=== PATIENT | female | born 1995 ===

== ENCOUNTER → 2020-04-22 14:17 | Outpatient (BNVA) | payer SELFPAY | PROVIDERS: Family Provider Family Medicine; PCP Family Medicine; Visit Provider Family Medicine | DX: E28.2 Polycystic ovarian syndrome (principal); F41.1 Generalized anxiety disorder; Z68.37 Body mass index [BMI] 37.0-37.9, adult; Z71.89 Other specified counseling | CPT/HCPCS: 80053 ==

== ENCOUNTER → 2020-06-29 09:37 | Outpatient (BNVA) | payer SELFPAY | PROVIDERS: Family Provider Family Medicine; PCP Family Medicine; Visit Provider Obstetrics & Gynecology | DX: Z34.01 Encounter for supervision of normal first pregnancy, first trimester (principal) | CPT/HCPCS: 81025 ==

== ENCOUNTER → 2020-08-11 10:00 | Outpatient (BNVA) | payer MEDICAID, SELFPAY | PROVIDERS: Family Provider Family Medicine; PCP Family Medicine; Visit Provider Obstetrics & Gynecology | DX: O09.291 Supervision of pregnancy with other poor reproductive or obstetric history, first trimester (principal); O99.281 Endocrine, nutritional and metabolic diseases complicating pregnancy, first trimester; E04.1 Nontoxic single thyroid nodule; E06.3 Autoimmune thyroiditis; E28.2 Polycystic ovarian syndrome; Z3A.10 10 weeks gestation of pregnancy | CPT/HCPCS: 80307; 81000; 82950; 84439; 84443; 84481; 85027; 86592; 86762; 86803; 86850; 86900; 87086; 87340; 87522 ==

== ENCOUNTER → 2020-08-24 09:42 | Outpatient (BNVA) | payer MEDICAID, SELFPAY | PROVIDERS: Family Provider Family Medicine; PCP Family Medicine; Visit Provider Obstetrics & Gynecology | DX: O09.299 Supervision of pregnancy with other poor reproductive or obstetric history, unspecified trimester (principal); E28.2 Polycystic ovarian syndrome; E03.9 Hypothyroidism, unspecified; F41.9 Anxiety disorder, unspecified; F32.9 Major depressive disorder, single episode, unspecified; Z3A.00 Weeks of gestation of pregnancy not specified | CPT/HCPCS: 84315; 87491; 87591 ==

== ENCOUNTER → 2020-09-21 09:58 | Outpatient (BNVA) | payer MEDICAID, SELFPAY | PROVIDERS: Family Provider Family Medicine; PCP Family Medicine; Visit Provider Nurse Practitioner Women's Health | DX: Z34.80 Encounter for supervision of other normal pregnancy, unspecified trimester; E03.9 Hypothyroidism, unspecified | CPT/HCPCS: 82105; 84315; 84443 ==

== ENCOUNTER → 2020-10-26 10:14 | Outpatient (BNVA) | payer MEDICAID, SELFPAY | PROVIDERS: Family Provider Family Medicine; PCP Family Medicine; Visit Provider Obstetrics & Gynecology | DX: O99.280 Endocrine, nutritional and metabolic diseases complicating pregnancy, unspecified trimester (principal); Z3A.00 Weeks of gestation of pregnancy not specified; E03.9 Hypothyroidism, unspecified | CPT/HCPCS: 81000; 84443 ==

== ENCOUNTER → 2020-12-14 12:15 | Outpatient (BNVA) | payer MEDICAID, SELFPAY | PROVIDERS: Family Provider Family Medicine; PCP Family Medicine; Visit Provider Nurse Practitioner Women's Health | DX: Z34.80 Encounter for supervision of other normal pregnancy, unspecified trimester (principal) | CPT/HCPCS: 82950; 84315; 84443; 85025 ==

== ENCOUNTER → 2020-12-17 08:20 | Outpatient (BNVA) | payer MEDICAID, SELFPAY | PROVIDERS: Family Provider Family Medicine; PCP Family Medicine; Visit Provider Nurse Practitioner Women's Health | DX: Z34.80 Encounter for supervision of other normal pregnancy, unspecified trimester (principal) | CPT/HCPCS: 82951; 82952 ==

== ENCOUNTER → 2020-12-28 10:52 | Outpatient (BNVA) | payer MEDICAID, SELFPAY | PROVIDERS: Family Provider Family Medicine; PCP Family Medicine; Visit Provider Obstetrics & Gynecology | DX: Z34.80 Encounter for supervision of other normal pregnancy, unspecified trimester (principal) | CPT/HCPCS: 84315; 84443 ==

== ENCOUNTER → 2021-01-25 16:09 | Outpatient (BNVA) | payer MEDICAID, SELFPAY | PROVIDERS: Family Provider Family Medicine; PCP Family Medicine; Visit Provider Nurse Practitioner Women's Health | DX: O99.280 Endocrine, nutritional and metabolic diseases complicating pregnancy, unspecified trimester; E03.9 Hypothyroidism, unspecified; O26.899 Other specified pregnancy related conditions, unspecified trimester; L29.9 Pruritus, unspecified; Z3A.00 Weeks of gestation of pregnancy not specified | CPT/HCPCS: 80076; 82010; 84315; 84443 ==

== ENCOUNTER → 2021-01-29 11:53 | Outpatient (BNVA) | payer MEDICAID, SELFPAY | PROVIDERS: Family Provider Family Medicine; PCP Family Medicine; Visit Provider Registered Nurse Neonatal Intensive Care | DX: Z20.822 Contact with and (suspected) exposure to COVID-19 (principal) | CPT/HCPCS: 87635 ==

== ENCOUNTER → 2021-02-09 10:57 | Outpatient (BNVA) | payer MEDICAID, SELFPAY | PROVIDERS: Family Provider Family Medicine; PCP Family Medicine; Visit Provider Obstetrics & Gynecology | DX: Z34.90 Encounter for supervision of normal pregnancy, unspecified, unspecified trimester (principal) | CPT/HCPCS: 84315; 87081 ==

== ENCOUNTER 2021-02-18 16:05 | Outpatient (CLI) | payer MEDICAID, SELFPAY ==
[2021-02-18] VITALS (7 sets, daily range): BP systolic 113–137; BP diastolic 64–85; PULSE 97–121; BMI 44.6
[2021-02-18 16:39] LABS: Basophils % 0.2 %; Eosinophils % 0.3 %; Hemoglobin 11.9 g/dL (11.5-15.3); Lymphocytes # 1.9 10^3/uL (0.8-4.8); Lymphocytes % 17.9 %; Mean Corpuscular HGB Conc 32.2 g/dL (30.0-36.0); Mean Corpuscular Hemoglobin 27.5 pg (28.0-34.0); Mean Corpuscular Volume 85.6 fl (81-99); Mean Platelet Volume 11.7 fL (7.4-10.4); Monocytes # 0.5 10^3/uL (0.2-0.9); Monocytes % 4.9 %; Neutrophils # 7.98 10^3/uL (1.8-7.7); Neutrophils % 76.3 %; Nucleated Red Blood Cells % 0 %; Platelet Count 185 10^3/cmm (130-400); Red Blood Count 4.32 10^6/uL (4.1-5.3); Red Cell Distribution Width 15.7 % (12.1-15.1); White Blood Count 10.5 10^3/uL (4.0-10.0)
[2021-02-18 16:56] LABS: Alanine Aminotransferase < 5 U/L (0-33); Albumin Level 3.3 g/dL (3.5-5.2); Alkaline Phosphatase 107 IU/L (35-105); Anion Gap 22.5 (5-19); Aspartate Amino Transferase 12 U/L (0-32); Blood Urea Nitrogen 6 mg/dL (6-20); Calcium 8.7 mg/dL (8.5-10.5); Carbon Dioxide 14 mmol/L (22-29); Chloride 104 mmol/L (98-107); Globulin 3.2 g/dL (1.3-4.6); Glomerular Filtration Rate 150.3 mL/min (90-130); Glucose 156 mg/dL (65-115); Osmolality Calculated 285 mOsm/kg (285-295); Potassium 3.5 mmol/L (3.5-5.1); Sodium 137 mmol/L (136-145); Total Bilirubin 0.2 mg/dL (0.15-1.2); Total Protein 6.5 g/dL (6.6-8.7)
[2021-02-18 17:23] LABS: Glucose Urine UA 2+ (Normal); Protein Urine 1+ (Negative); Specific Gravity, Urine 1.025 (1.005-1.030); Urine Appearance Cloudy (CLEAR); Urine Color Yellow (Yellow); pH Urine 5 (5-7)
[2021-02-18 17:24] LABS: Add Urine Culture? No; Bacteria Urine 3+ /hpf; Bilirubin Urine Neg (Negative); Blood Urine Neg (Negative); Ketones Urine 2+ (Negative); Leukocyte Esterase Urine Negative (Negative); Nitrate Urine Negative (Negative); Urobilinogen Urine Norm (Negative)
[2021-02-18 17:36] LABS: Urine Creatinine 173 mg/dL (28-217)
[2021-02-18 17:42] LABS: UPRO/UCREAT Ratio 0.54 mg/mg CR; Urine Protein Random 94 mg/dL
[2021-02-18 20:22] LABS: Thyroid Stimulating Hormone 2.11 uIU/mL (0.27-4.20)
== END 2021-02-18 18:20 | disposition home or self-care (01) ==
LOC: OPOB 16:11 → OBGYN 16:12
PROVIDERS: Family Provider Family Medicine; PCP Family Medicine; Visit Provider Obstetrics & Gynecology
DX: O16.9 Unspecified maternal hypertension, unspecified trimester (principal)
CPT/HCPCS: 36415; 80053; 81001; 82570; 84156; 84315; 84443; 84550; 85025; 87086; 99211

== ENCOUNTER → 2021-02-21 08:59 | Outpatient (BNVA) | payer MEDICAID, SELFPAY | PROVIDERS: Family Provider Family Medicine; PCP Family Medicine; Visit Provider Obstetrics & Gynecology | DX: Z34.80 Encounter for supervision of other normal pregnancy, unspecified trimester (principal); Z20.822 Contact with and (suspected) exposure to COVID-19 | CPT/HCPCS: 84315; 87635 ==

== ENCOUNTER → 2021-02-22 16:14 | Outpatient (BNVA) | payer MEDICAID, SELFPAY | PROVIDERS: Family Provider Family Medicine; PCP Family Medicine; Visit Provider Nurse Practitioner Women's Health | DX: Z34.80 Encounter for supervision of other normal pregnancy, unspecified trimester (principal) | CPT/HCPCS: 82570; 84156 ==

== ENCOUNTER 2021-02-23 05:07 | Inpatient (IN) | payer MEDICAID, SELFPAY ==
[2021-02-23] VITALS (38 sets, daily range): BP systolic 108–136; BP diastolic 56–90; PULSE 75–116; RESP 16–17; TEMP 36.5–36.8; BMI 44.8
[2021-02-23 06:28] LABS: Basophils % 0.2 %; Eosinophils # 0.1 10^3/uL (0.0-0.8); Eosinophils % 0.6 %; Hemoglobin 11.8 g/dL (11.5-15.3); Lymphocytes # 2.3 10^3/uL (0.8-4.8); Lymphocytes % 25.6 %; Mean Corpuscular HGB Conc 31.9 g/dL (30.0-36.0); Mean Corpuscular Hemoglobin 27.4 pg (28.0-34.0); Mean Platelet Volume 12.4 fL (7.4-10.4); Monocytes # 0.8 10^3/uL (0.2-0.9); Monocytes % 9.2 %; Neutrophils # 5.72 10^3/uL (1.8-7.7); Neutrophils % 64.1 %; Nucleated Red Blood Cells % 0 %; Platelet Count 176 10^3/cmm (130-400); Red Cell Distribution Width 15.8 % (12.1-15.1); White Blood Count 8.9 10^3/uL (4.0-10.0)
--- NOTE | 2021-02-23 07:00 | P.PN_ITS ---
Subjective Subjective: Interval history: Subjective- Ms. Lamar is a 25-year-old 3 para 2-0-0-2 at 38 weeks and 4 days who presented to labor and delivery on 02/23/2021 for scheduled external cephalic version. When she presented to routine visit on 02/18/2021 she was noted to be breech presentation and when I evaluated her on 02/21/2021 she continued to be breech presentation and after counseling desired version. When she presented to labor and delivery for scheduled version on 02/23/2021 fetus was noted to be cephalic. During her visit on 02/18/2021 she was noted to have elevated blood pressure which was thought to be attributed to anxiety with the pain presentation however she was sent to labor and delivery and lab work done was within normal limits except for protein creatinine ratio which was elevated at 0.5 and uric acid which was elevated at 6. The elevated protein creatinine ratio of urine was thought to be secondary to urinary tract infection and cultu re was sent however this was negative. This raised the concern she may still be preeclamptic although on her visit on 02/21/2021 she was normotensive with negative protein. Straight cath urine analysis and repeat protein creatinine ratio was performed and this protein creatinine ratio was again elevated at 0.38 giving her the diagnosis of preeclampsia without severe features. Because of this decision was made to keep patient and induce her labor. Objective- Abdomen-gravid, nontender, obese Sterile vaginal exam-2 cm, 50%, -4 station, cephalic EFM-135, moderate variability, accelerations present no decelerations Candy Kitchen-c occasional contractions Assessment: 25-year-old 3 para 2-0-0-2 at 38 weeks and 4 days Preeclampsia without severe features-induction of labor Cephalic presentation-no longer breech Polyhydramnios Macrosomia Maternal morbid obesity Maternal hypothyroidism Anxiety and depression-no medication Plan: Discussed with patient results discussed that although she is largely normotensive she meets criteria for preeclampsia. Discussed advantages disadvantages and alternatives of induction now versus waiting for active labor. Discussed risks of untreated undelivered preeclampsia-seizures . She desires to stay to be induced -Patient turned over to Dr. Myers who is on-call today. Dr. Myers updated and has no questions and will take over management. Magnesium sulfate to be determined by managing provider. -Management as per Dr. Myers -Continuous EFM and tocometry Vitals/I&O/Wt Last Vital Signs Temp 97.7 F 02/23/21 05:25 Pulse 93 02/23/21 17:40 Resp 17 02/23/21 08:45 BP 126/63 02/23/21 17:40 02/23/21 02/23/21 02/23/21 06:59 14:59 22:59 Intake Total 0.5 / 0.5 Balance 0.5 / 0.5 Weight last 48 hrs Weight 253 lb Data : 02/23/21 05:35 02/23/21 05:35 Attestations Medical Necessity Statement*: Patient will need to stay for induction and delivery this will likely take more than a couple of midnights Coding Level of Care Code Acute Straight Truck Driver for Anthony Ruiz
[2021-02-23 07:07] LABS: Alanine Aminotransferase 7 U/L (0-33); Albumin Level 3.2 g/dL (3.5-5.2); Alkaline Phosphatase 113 IU/L (35-105); Aspartate Amino Transferase 12 U/L (0-32); Blood Urea Nitrogen 6 mg/dL (6-20); Calcium 8.5 mg/dL (8.5-10.5); Carbon Dioxide 19 mmol/L (22-29); Chloride 105 mmol/L (98-107); Globulin 2.9 g/dL (1.3-4.6); Glomerular Filtration Rate 194.5 mL/min (90-130); Glucose 105 mg/dL (65-115); Osmolality Calculated 282 mOsm/kg (285-295); Sodium 137 mmol/L (136-145); Total Bilirubin 0.2 mg/dL (0.15-1.2); Total Protein 6.1 g/dL (6.6-8.7); Uric Acid 5.7 mg/dL (2.4-5.7)
--- NOTE | 2021-02-23 14:04 | PM.OPHPUD ---
Labor & Delivery H&P Update Date of Procedure: February 23, 2021 Date H&P Performed: 02/21/21 H&P update information: I have reviewed H&P completed within last 30 days, I have examined patient prior to procedure and Changes to prior documentation as noted here Changes to previous documentation: The patient presented for an external cephalic version due to breech presentation. She was found to be cephalic on presentation. She had slightly elevated blood pressures and her urine protein creatinine ratio was 0.38. She denied any symptoms of preeclampsia, however, due to these two things, she meets the criteria for mild preeclampsia. The remainder of her preeclamptic labs were normal. cervix is unchanged. Admission Diagnosis: Preop diagnosis: iup @ 38w4d Planned procedure: Operation Date: 02/23/21 07:00 Proposed Procedures p Cephalic Eversion(Not Applicable) - Cristina Bose MD Related Problem List Diagnoses (1) macrosomia affecting management of mother, antepartum: (2) Anxiety and depression: (3) Hypothyroidism: (4) Supervision of other normal :
[2021-02-23] MEDS: dextrose 5%-lactated ringers 1,000 ML 125 ML IV (14:59)
[2021-02-23] MEDS: oxytocin 30 UNIT/500 ML BAG IV (15:00)
[2021-02-23] MEDS: miSOPROStol 100 mcg tablet 25 MCG VAGINAL (21:17)
[2021-02-24] VITALS (29 sets, daily range): BP systolic 112–150; BP diastolic 55–87; PULSE 75–102; RESP 14–16; TEMP 36.3–36.6
[2021-02-24] MEDS: miSOPROStol 100 mcg tablet 25 MCG VAGINAL (01:33)
[2021-02-24] MEDS: lactated ringers 1,000 ML 125 ML IV (10:47)
[2021-02-24] MEDS: dextrose 5%-lactated ringers 1,000 ML 50 ML IV (13:17)
--- NOTE | 2021-02-24 18:04 | P.PN_ITS ---
Subjective Subjective: Interval history: Subjective- Ms. Lamar is a 25-year-old 3 para 2-0-0-2 at 38 weeks and 4 days who presented to labor and delivery on 02/23/2021 for scheduled external cephalic version. When she presented to routine visit on 02/18/2021 she was noted to be breech presentation and when I evaluated her on 02/21/2021 she continued to be breech presentation and after counseling desired version. When she presented to labor and delivery for scheduled version on 02/23/2021 fetus was noted to be cephalic. During her visit on 02/18/2021 she was noted to have elevated blood pressure which was thought to be attributed to anxiety with the pain presentation however she was sent to labor and delivery and lab work done was within normal limits except for protein creatinine ratio which was elevated at 0.5 and uric acid which was elevated at 6. The elevated protein creatinine ratio of urine was thought to be secondary to urinary tract infection and cultur e was sent however this was negative. This raised the concern she may still be preeclamptic although on her visit on 02/21/2021 she was normotensive with negative protein. Straight cath urine analysis and repeat protein creatinine ratio was performed and this protein creatinine ratio was again elevated at 0.38 giving her the diagnosis of preeclampsia without severe features. Because of this decision was made to keep patient and induce her labor. ------> induction of labor was started with Dr. Myers on 02/23/2021. Patient wanted to try to walk to see if this would help labor and initially declined any medication. She ambulated the umana morning and when she had no further cervical change agreed to starting Pitocin. Pitocin was started at 3 PM on 02/23/2021 and titrated to a maximum of 5 mIU. At 7 PM-4 hours later patient decided she did not want Pitocin anymore and requested this be stopped and she wanted to use Cytotec so she could ambulate. She received a total of 2 doses of Cytotec---1 at 9:15 PM on 02/23/2021 and the second 1 at 1:33 AM on 02/24/2021. With this she started with regular contractions but really did not make much cervical change. She was observed from 5:30 AM to 10:30 AM and wanted to walk but did not make any further cervical change and remained about 3 cm 75% and -3 station and as a result Pitocin was started at 7:30 AM on 02/24/2021--this was titrated to a maximum of 9 mIU. Throughout this time she remained largely normotensive with occasional elevated blood pressures in the low 140s. Labor this far was managed by Dr. Lombardi and Dr. Myers --->When I came motion pictures cartoonist at 5 PM on 02/24/2021 had a long discussion with patient about management of labor. Discussed that protracted labor and long inductions increased risk for hemorrhage. Patient was concerned about Pitocin increasing the risk of depression all her questions were answered and she is willing to try Pitocin. Patient is emotional and crying and frustrated with the lack of progress at this time. Objective- Abdomen-gravid, nontender, obese Sterile vaginal exam-4 cm, 60% -[id number] not well engaged EFM-135, moderate variability, accelerations present no decelerations Stryker-contractions every 2 to 4 minutes Assessment: 25-year-old 3 para 2-0-0-2 at 38 weeks and 5 days Preeclampsia without severe features-induction of labor Cephalic presentation-no longer breech Polyhydramnios Macrosomia Maternal morbid obesity Maternal hypothyroidism Anxiety and depression-no medication Plan: We will start patient back on her thyroid medication-first dose today and every 24 hours -Morbid obesity-start SCDs for DVT prophylaxis given prolonged immobilization from Pitocin and induction -we will take a therapeutic rest from medication at this time and let patient shower eat and ambulate -And will plan on restarting medication between 10 and 11 PM. Discussed sleeper since patient really has not slept very well. -Discussed medication and patient is fine with Pitocin again and is willing to do what of a protocol of Pitocin as needed as she just wants his baby out and wants to avoid a -Active type and screen given high risk for hemorrhage given long induction, macrosomia and polyhydramnios - continuous EFM and tocometry -Preeclampsia-discussed that since she is mild without any severe features and just occasional elevated blood pressure we can defer on magnesium sulfate and could either active labor or just . Discussed I would definitely recommend magnesium sulfate decrease her risk of seizures. She understands this and agrees with this. Discussed possible need for Bray cath and she is not sure if she wants a Bray catheter and will revisit this issue . She would prefer to have magnesium sulfate only and not in labor. -All patient's and her partner's questions were answered to their satisfaction and they agree with the current plan of care Vitals/I&O/Wt Last Vital Signs Temp 97.9 F 02/24/21 16:06 Pulse 86 02/24/21 16:06 Resp 16 02/24/21 06:00 BP 123/66 02/24/21 16:06 02/24/21 02/24/21 02/24/21 06:59 14:59 22:59 Intake Total 321.967 / 321.967 242.833 / 564.800 Balance 321.967 / 321.967 242.833 / 564.800 Weight last 48 hrs Weight 253 lb Data : 02/23/21 05:35 02/23/21 05:35 Attestations Medical Necessity Statement*: Patient will need to stay 1-2 more midnights for delivery and recovery Coding Level of Care Code Acute Checking Clerk for Rafaelag Sara
[2021-02-24] MEDS: levothyroxine 175 mcg Tablet PO (18:45)
[2021-02-24] MEDS: morphine 4 mg/mL SDV 1 mL 8 MG IM (22:59)
[2021-02-24] MEDS: oxytocin 30 UNIT/500 ML BAG IV (22:59)
[2021-02-24] MEDS: promethazine 25 mg/mL SDV 1 mL IM (23:01)
[2021-02-25] VITALS (41 sets, daily range): BP systolic 104–140; BP diastolic 56–88; PULSE 73–101; RESP 16–18; TEMP 36.3–36.8
[2021-02-25] MEDS: lactated ringers 1,000 ML 999 ML IV (03:10)
[2021-02-25] MEDS: dextrose 5%-lactated ringers 1,000 ML 125 ML IV (07:52)
[2021-02-25] MEDS: miSOPROStol 200 mcg Tablet 800 MCG PR (13:40)
--- NOTE | 2021-02-25 14:42 | PM.DELIVERY ---
Delivery Note: Date of delivery: February 25, 2021 - PRE-DELIVERY DIAGNOSIS: 25-year-old 3 para 2-0-0-2 at 38 weeks and 4 days Preeclampsia without severe features-induction of labor Cephalic presentation-no longer breech Polyhydramnios Macrosomia Maternal morbid obesity Maternal hypothyroidism Anxiety and depression-no medication POST-DELIVERY DIAGNOSIS: Vaginal delivery on 02/25/2021 Preeclampsia without severe features---plan for magnesium sulfate maternal hypothyroidism PROCEDURE: Vaginal delivery on 02/25/2021 ANESTHESIA: None DELIVERING PHYSICIAN: Cristina Caban FACOG PRE-DELIVERY COURSE: Ms. Lamar is a 25-year-old 3 para 2-0-0-2 at 38 weeks and 4 days who presented to labor and delivery on 02/23/2021 for scheduled external cephalic version. When she presented to routine visit on 02/18/2021 she was noted to be breech presentation and when I evaluated her on 02/21/2021 she continued to be breech presentation and after counseling desired version. When she presented to labor and delivery for scheduled version on 02/23/2021 fetus was noted to be cephalic. During her visit on 02/18/2021 she was noted to have elevated blood pressure which was thought to be attributed to anxiety with the pain presentation however she was sent to labor and delivery and lab work done was within normal limits except for protein creatinine ratio which was elevated at 0.5 and uric acid which was elevated at 6. The elevated protein creatinine ratio of urine was thought to be secondary to urinary tract infection and culture was sent however this was negative. This raised the concern she may still be preeclamptic although on her visit on 02/21/2021 she was normotensive with negative protein. Straight cath urine analysis and repeat protein creatinine ratio was performed and this protein creatinine ratio was again elevated at 0.38 giving her the diagnosis of preeclampsia without severe features. Because of this decision was made to keep patient and induce her labor. ------> induction of labor was started with Dr. Myers on 02/23/2021. Patient wanted to try to walk to see if this would help labor and initially declined any medication. She ambulated the umana morning and when she had no further cervical change agreed to starting Pitocin. Pitocin was started at 3 PM on 02/23/2021 and titrated to a maximum of 5 mIU. At 7 PM-4 hours later patient decided she did not want Pitocin anymore and requested this be stopped and she wanted to use Cytotec so she could ambulate. She received a total of 2 doses of Cytotec---1 at 9:15 PM on 02/23/2021 and the second 1 at 1:33 AM on 02/24/2021. With this she started with regular contractions but really did not make much cervical change. She was observed from 5:30 AM to 10:30 AM and wanted to walk but did not make any further cervical change and remained about 3 cm 75% and -3 station and as a result Pitocin was started at 7:30 AM on 02/24/2021--this was titrated to a maximum of 9 mIU. Throughout this time she remained largely normotensive with occasional elevated blood pressures in the low 140s. Labor this far was managed by Dr. Lombardi and Dr. Myers ------> at 5:30 PM 2020 medication was stopped to allow for therapeutic rest. Pitocin was restarted at 11 PM and titrated to a maximum of 7 mIU. With this she started to have regular contractions. She had a. Of late decelerations and Pitocin was stopped at 3:30 AM on 02/25/2021. She continued to have regular contractions initially every 2 to 3 minutes and made minimal cervical change to 5 cm 75% 10-2 station. Artificial rupture of membranes was performed at 9:15 AM with clear fluid. Head was well applied. Contractions had spaced out after rupture of membranes to every 5 to 10 minutes and she did not make any further cervical price changer the next 2 hours. Pitocin was restarted and titrated to a maximum of 12 mIU and with this she had regular contractions with cervical change and was fully dilated at 1:22 PM and felt the urge to push. DELIVERY NOTE: She was set up in lithotomy position and was pushing effectively. She was noted to be +3 station and continued pushing well. The head delivered in MARCOS position, nuchal cord x1 was present and was tight and unable to be reduced. The shoulders and rest of the body followed with her next push and delivered through the cord without any difficulty. The baby's mouth and nose were suctioned and the baby was placed on the mother's belly. Once cord pulsations stopped the cord was clamped and cut. The placenta delivered spontaneously intact with membranes and was discarded. The fundus was noted to be firm and well contracted. The lower uterine segment was pretty boggy and patient did not tolerate bimanual massage well. Decision was made to place Cytotec 800 mcg per rectum to aid in uterine contraction. With this to improved. The vagina and cervix were inspected and no cervical or sulcal lacerations were noted. The perineum was noted to be intact. Baby boy, Jamey born at 1:27 PM on 02/25/2021 with 9/9, weighing 9 pounds 11 ounces, 4319 g, 20-3/4 inches long. Placenta was delivered spontaneously intact with membranes at 1:31 PM. Cotyledons were intact , centrally inserted inserted umbilical cord with 3 vessels noted. Estimated blood loss 200mL. Complications-none, baby and mother were left to recover in a stable condition. Mother was started on magnesium 4 g bolus for 2 g maintenance for seizure prophylaxis given preeclampsia. This documentation was created by [employer] chinchilla machine operator software (known for inherent chinchilla machine operator error). Every effort was made to assure accuracy of chinchilla machine operator. Any obvious errors or omissions should be clarified with the author of the document. History History History 3 Term 3 Miscarriages/Ectopic 0 0 Living Children 3 Other History: 3, para 3003 x 3 1---> 04/21/2015, Female, ([place]) 7lbs 2oz, no complications, Nuchal +1, vaginal delivery, 38 6/7 weeks gestation, delivered by Dr. Brennan at [facility]. NO complications. 2--> 04/03/2018, Male, ([place]), 8lbs 4oz, induced due to Baby had arrhythmic heartbeat & 3 holes in heart, vaginal delivery, 40 2/7 weeks gestation, delivered by Dr. Brennan at [facility] [place]. ASD closure, repair of 2 holes. She states that her son has chromosomal deletion and she states that the locks tender this stated that this can only be diagnosed after delivery. He has neutropenia ,metopic fusion. 3--> 02/25/2021, male, [place] weighing 9 pounds 11 ounces, induction of labor for mild preeclampsia at 38 weeks and 4 days. Baby was breech with planned version however was cephalic the day of version. Delivered by Dr. Caban at [facility]. Intact perineum. Patient received magnesium sulfate for 24 hours Coding Level of Care Code Acute Superintendent Generating Plant for Anthony Ruiz
[2021-02-25] MEDS: levothyroxine 175 mcg Tablet PO (15:09)
[2021-02-25] MEDS: ibuprofen 800 mg tablet PO ×2 (15:10→22:21)
[2021-02-25] MEDS: magnesium sulfate premix 4 GM/100 ML PREMIX IV (15:24)
[2021-02-25] MEDS: magnesium sulfate premix 20 GM/500 ML BAG IV (15:49)
[2021-02-25] MEDS: docusate sodium 100 mg Capsule PO (17:25)
[2021-02-25] MEDS: dextrose 5%-lactated ringers 1,000 ML 75 ML IV (17:25)
[2021-02-25 22:51] LABS: Magnesium Level (OB Only) 3.6 mg/dL (5.0-7.5)
[2021-02-26] VITALS (16 sets, daily range): BP systolic 110–130; BP diastolic 72–84; PULSE 80–98; RESP 15–17; TEMP 36.4–37.1; O2SAT 97–98
[2021-02-26] MEDS: magnesium sulfate premix 20 GM/500 ML BAG IV ×2 (01:23→08:32)
[2021-02-26 02:39] LABS: Hematocrit 33.9 % (37.0-47.0); Hemoglobin 10.8 g/dL (11.5-15.3); Mean Corpuscular HGB Conc 31.9 g/dL (30.0-36.0); Mean Corpuscular Hemoglobin 27.1 pg (28.0-34.0); Mean Corpuscular Volume 85.2 fl (81-99); Mean Platelet Volume 11.9 fL (7.4-10.4); Platelet Count 149 10^3/cmm (130-400); Red Blood Count 3.98 10^6/uL (4.1-5.3); Red Cell Distribution Width 15.8 % (12.1-15.1); White Blood Count 10.9 10^3/uL (4.0-10.0)
[2021-02-26 03:06] LABS: Magnesium Level (OB Only) 4.3 mg/dL (5.0-7.5)
[2021-02-26] MEDS: HYDROcodone-acetaminophen 5-325 mg Tablet PO (05:10)
--- NOTE | 2021-02-26 06:32 | PM.OBGYDC ---
Discharge Providers CINDER MAN Date of Admission: 02/25/21 12:05 Date of Discharge: 02/26/21 Attending Provider at Admission: Cristina Bose MD Attending Provider at Discharge: Cristina Bose MD Primary Care Provider: Tiffanie Gómez DO PRE-DELIVERY DIAGNOSIS: 25-year-old 3 para 2-0-0-2 at 38 weeks and 4 days Preeclampsia without severe features-induction of labor Cephalic presentation-no longer breech Polyhydramnios Macrosomia Maternal morbid obesity Maternal hypothyroidism Anxiety and depression-no medication POST-DELIVERY DIAGNOSIS: Vaginal delivery on 02/25/2021 Preeclampsia without severe features---plan for magnesium sulfate maternal hypothyroidism PROCEDURE: Vaginal delivery on 02/25/2021 ANESTHESIA: None DELIVERING PHYSICIAN: Cristina Caban FACOG PRE-DELIVERY COURSE: Ms. Lamar is a 25-year-old 3 para 2-0-0-2 at 38 weeks and 4 days who presented to labor and delivery on 02/23/2021 for scheduled external cephalic version. When she presented to routine visit on 02/18/2021 she was noted to be breech presentation and when I evaluated her on 02/21/2021 she continued to be breech presentation and after counseling desired version. When she presented to labor and delivery for scheduled version on 02/23/2021 fetus was noted to be cephalic. During her visit on 02/18/2021 she was noted to have elevated blood pressure which was thought to be attributed to anxiety with the pain presentation however she was sent to labor and delivery and lab work done was within normal limits except for protein creatinine ratio which was elevated at 0.5 and uric acid which was elevated at 6. The elevated protein creatinine ratio of urine was thought to be secondary to urinary tract infection and culture was sent however this was negative. This raised the concern she may still be preeclamptic although on her visit on 02/21/2021 she was normotensive with negative protein. Straight cath urine analysis and repeat protein creatinine ratio was performed and this protein creatinine ratio was again elevated at 0.38 giving her the diagnosis of preeclampsia without severe features. Because of this decision was made to keep patient and induce her labor. ------> induction of labor was started with Dr. Myers on 02/23/2021. Patient wanted to try to walk to see if this would help labor and initially declined any medication. She ambulated the umana morning and when she had no further cervical change agreed to starting Pitocin. Pitocin was started at 3 PM on 02/23/2021 and titrated to a maximum of 5 mIU. At 7 PM-4 hours later patient decided she did not want Pitocin anymore and requested this be stopped and she wanted to use Cytotec so she could ambulate. She received a total of 2 doses of Cytotec---1 at 9:15 PM on 02/23/2021 and the second 1 at 1:33 AM on 02/24/2021. With this she started with regular contractions but really did not make much cervical change. She was observed from 5:30 AM to 10:30 AM and wanted to walk but did not make any further cervical change and remained about 3 cm 75% and -3 station and as a result Pitocin was started at 7:30 AM on 02/24/2021--this was titrated to a maximum of 9 mIU. Throughout this time she remained largely normotensive with occasional elevated blood pressures in the low 140s. Labor this far was managed by Dr. Lombardi and Dr. Myers ------> at 5:30 PM 2020 medication was stopped to allow for therapeutic rest. Pitocin was restarted at 11 PM and titrated to a maximum of 7 mIU. With this she started to have regular contractions. She had a. Of late decelerations and Pitocin was stopped at 3:30 AM on 02/25/2021. She continued to have regular contractions initially every 2 to 3 minutes and made minimal cervical change to 5 cm 75% 10-2 station. Artificial rupture of membranes was performed at 9:15 AM with clear fluid. Head was well applied. Contractions had spaced out after rupture of membranes to every 5 to 10 minutes and she did not make any further cervical change management expert the next 2 hours. Pitocin was restarted and titrated to a maximum of 12 mIU and with this she had regular contractions with cervical change and was fully dilated at 1:22 PM and felt the urge to push. DELIVERY NOTE: She was set up in lithotomy position and was pushing effectively. She was noted to be +3 station and continued pushing well. The head delivered in MARCOS position, nuchal cord x1 was present and was tight and unable to be reduced. The shoulders and rest of the body followed with her next push and delivered through the cord without any difficulty. The baby's mouth and nose were suctioned and the baby was placed on the mother's belly. Once cord pulsations stopped the cord was clamped and cut. The placenta delivered spontaneously intact with membranes and was discarded. The fundus was noted to be firm and well contracted. The lower uterine segment was pretty boggy and patient did not tolerate bimanual massage well. Decision was made to place Cytotec 800 mcg per rectum to aid in uterine contraction. With this to improved. The vagina and cervix were inspected and no cervical or sulcal lacerations were noted. The perineum was noted to be intact. Baby boy, Jamey born at 1:27 PM on 02/25/2021 with 9/9, weighing 9 pounds 11 ounces, 4319 g, 20-3/4 inches long. Placenta was delivered spontaneously intact with membranes at 1:31 PM. Cotyledons were intact , centrally inserted inserted umbilical cord with 3 vessels noted. Estimated blood loss 200mL. Complications-none, baby and mother were left to recover in a stable condition. Mother was started on magnesium 4 g bolus for 2 g maintenance for seizure prophylaxis given preeclampsia. HOSPITAL COURSE: She underwent an uncomplicated vaginal delivery on 02/25/2021. She did well on day 0 and was tolerating clears and laying in bed receiving magnesium sulfate. She had adequate diuresis and magnesium level had to be increased to 3 g an hour to achieve therapeutic goal. She was breast-feeding without difficulty and bonding well with her son. She did not want him circumcised. Pain was well-controlled with by mouth pain medication. She denied nausea, vomiting, fever, chills, shortness of breath, leg pain. She had moderate vaginal bleeding. On day # 1 she continued to do well with stable vital signs and stable hemoglobin at 10.8. Magnesium sulfate was discontinued after 24 hours and she remained normotensive during this time and had diuresed adequately.. She was discharged home on day 1 in a stable condition, as she desired early discharge. Patient to monitor blood pressures twice a day and bring this to her 1 week blood pressure check. Warning signs for endometritis, preeclampsia, eclampsia mastitis, DVT/PE were reviewed with her. Post delivery activity restrictions were also reviewed with her at all her questions were answered to her satisfaction. Plans on using control pills for contraception which will be started at her 6-week visit EXAM AT DISCHARGE: Gen.: No acute distress Heart: S1-S2 heard, regular rate and rhythm Lungs: Clear to auscultation bilaterally Abdomen: Soft, fundus firm below umbilicus, Legs: No calf tenderness, +1 bilateral pitting pedal edema. CONDITION AT DISCHARGE: Stable This documentation was created by [employer] chemical research engineer software (known for inherent chemical research engineer error). Every effort was made to assure accuracy of chemical research engineer. Any obvious errors or omissions should be clarified with the author of the document. Information Peripartum Data: Delivery Method: Vaginal Physical Exam Urinary Catheter Management^: Bray: Cath Placed During This Visit: yes Reason for Continuing Indwelling Catheter: Accurate Measurement of Urinary Output in Critically Ill Patients Urinary Catheter Date of Insertion: 02/25/21 Urinary Catheter Time of Insertion: 17:40 History History History 3 Term 3 Miscarriages/Ectopic 0 0 Living Children 3 Other History: 3, para 3003 x 3 1---> 04/21/2015, Female, ([place]) 7lbs 2oz, no complications, Nuchal +1, vaginal delivery, 38 6/7 weeks gestation, delivered by Dr. Brennan at [facility]. NO complications. 2--> 04/03/2018, Male, ([place]), 8lbs 4oz, induced due to Baby had arrhythmic heartbeat & 3 holes in heart, vaginal delivery, 40 2/7 weeks gestation, delivered by Dr. Brennan at [facility]. ASD closure, repair of 2 holes. She states that her son has chromosomal deletion and she states that the pet feeder this stated that this can only be diagnosed after delivery. He has neutropenia ,metopic fusion. 3--> 02/25/2021, male, Jamey weighing 9 pounds 11 ounces, induction of labor for mild preeclampsia at 38 weeks and 4 days. Baby was breech with planned version however was cephalic the day of version. Delivered by Dr. Caban at [facility]. Intact perineum. Patient received magnesium sulfate for 24 hours Discharge Data Data Completed and Pending: Labs from last 24 hours 02/26/21 02/26/21 02/25/21 02:26 02:26 21:45 WBC 10.9 H RBC 3.98 L Hgb 10.8 L Hct 33.9 L MCV 85.2 MCH 27.1 L MCHC 31.9 RDW 15.8 H Plt Count 149 MPV 11.9 H Magnesium 4.3 L* 3.6 L* Vitals: Last Vital Signs Temp 97.9 F 02/26/21 05:50 Pulse 93 02/26/21 05:50 Resp 17 02/26/21 04:49 BP 130/84 02/26/21 05:50 Discharge Plan Discharge Patient Disposition: Home Condition: Stable Prescriptions: New docusate sodium 100 mg Capsule 100 mg PO BID PRN (Reason: constipation) Qty: 30 RF: 0 ibuprofen 800 mg tablet 800 mg PO Q8H Qty: 30 RF: 0 Continued prenat.vits,elvis,[id number] Tablet 1 tab PO DAILY RF: 0 Changed levothyroxine 175 mcg capsule 125 mcg PO DAILY Qty: 30 RF: 2 Discontinued cephalexin 500 mg capsule 500 mg PO TID RF: 0 Discharge Orders: Discharge Order (Routine); Ordered 02/26/21 Ordered By: Cristina Bose Referrals: Cristina Bose MD [Physician] - (1 week blood pressure check and 6-week visit with Dr. Caban) Discharge Diet: Regular Discharge Activity: Limit activity as instructed Patient Instructions: Your Baby (DC), How to Hold and Breastfeed Your Baby (DC), and Nipple Soreness (DC), Preeclampsia and Eclampsia After Delivery (GEN), OB Discharge Report, Opioid Safety, OB Vaginal Deliveries - [facility], Abnormal Bleeding Activity Restrictions/Additional Instructions: Pelvic rest for 6 weeks, no heavy lifting for 6 weeks 1 week blood pressure check and 6-week visit with Dr. Caban Discharge Attestations CINDER MAN Time Spent in Discharge Care*: greater than 30 min Coding Level of Care Code Acute Contract Negotiator for Chg Sara
[2021-02-26] MEDS: docusate sodium 100 mg Capsule PO (08:31)
[2021-02-26] MEDS: prenatal vitamin Capsule 1 CAP PO (08:31)
[2021-02-26] MEDS: ibuprofen 800 mg tablet PO ×2 (08:31→15:11)
[2021-02-26] MEDS: dextrose 5%-lactated ringers 1,000 ML 50 ML IV (08:32)
[2021-02-26 08:35] LABS: Magnesium Level (OB Only) 5.4 mg/dL (5.0-7.5)
[2021-02-26] MEDS: levothyroxine 175 mcg Tablet PO (08:43)
== END 2021-02-26 19:45 | disposition home or self-care (01) | DRG 807 ==
LOC: OPOB 05:35 → OBGYN 05:36
PROVIDERS: Obstetrics & Gynecology; Admitting Provider Obstetrics & Gynecology; PCP Family Medicine; Visit Provider Obstetrics & Gynecology
DX: O14.04 Mild to moderate pre-eclampsia, complicating childbirth (principal); Z37.0 Single live birth; Z3A.38 38 weeks gestation of pregnancy; O99.344 Other mental disorders complicating childbirth; F99 Mental disorder, not otherwise specified; O99.284 Endocrine, nutritional and metabolic diseases complicating childbirth; E03.9 Hypothyroidism, unspecified; O40.3XX0 Polyhydramnios, third trimester, not applicable or unspecified; E28.2 Polycystic ovarian syndrome; O16.4 Unspecified maternal hypertension, complicating childbirth; O99.214 Obesity complicating childbirth; E66.01 Morbid (severe) obesity due to excess calories; O36.63X0 Maternal care for excessive fetal growth, third trimester, not applicable or unspecified; O69.2XX0 Labor and delivery complicated by other cord entanglement, with compression, not applicable or unspecified
CPT/HCPCS: 36415; 51702; 59409; 80053; 83735; 84550; 85025; 85027; 86850; 86900; 96372; G0378; J2270; J2550; J3475

== ENCOUNTER → 2021-04-11 16:44 | Outpatient (BNVA) | payer MEDICAID, SELFPAY | PROVIDERS: PCP Family Medicine; Visit Provider Registered Nurse Neonatal Intensive Care | DX: Z20.822 Contact with and (suspected) exposure to COVID-19 (principal) | CPT/HCPCS: 87635 ==

== ENCOUNTER → 2021-04-20 12:16 | Outpatient (BNVA) | payer MEDICAID, SELFPAY | PROVIDERS: PCP Family Medicine; Visit Provider Obstetrics & Gynecology | DX: Z12.4 Encounter for screening for malignant neoplasm of cervix (principal); E03.9 Hypothyroidism, unspecified | CPT/HCPCS: 84439; 84443; 84481; 88175 ==

== ENCOUNTER → 2021-05-03 16:13 | Outpatient (BNVA) | payer MEDICAID, SELFPAY | PROVIDERS: PCP Family Medicine; Visit Provider Obstetrics & Gynecology | DX: R10.2 Pelvic and perineal pain (principal); N85.4 Malposition of uterus; N83.8 Other noninflammatory disorders of ovary, fallopian tube and broad ligament | CPT/HCPCS: 76830 ==

== ENCOUNTER → 2021-09-09 07:51 | Outpatient (BNVA) | payer MEDICAID, SELFPAY | PROVIDERS: PCP Family Medicine; Visit Provider Internal Medicine | DX: E06.3 Autoimmune thyroiditis (principal); E03.8 Other specified hypothyroidism; E04.1 Nontoxic single thyroid nodule; R13.10 Dysphagia, unspecified | CPT/HCPCS: 84439; 84443; 99204 ==

== ENCOUNTER 2021-12-30 12:36 | Outpatient (CLI) | payer MEDICAID, SELFPAY ==
--- NOTE | 2021-12-30 12:45 | US_ITS ---
WS: [id number] THYROID ULTRASOUND HISTORY: Thyroid nodules COMPARISON: 03/10/2019 Right lobe: 2.0 cm x 1.8 cm x 5.2 cm (w x ap x l). Volume: 9.7 cm3. Mildly enlarged heterogeneous thyroid. Hyperechoic solid mass with increased peripheral vascularity i n the mid to lower thyroid. Mass measures 2.0 x 1.5 x 3.9 cm and has slightly increased in size since the prior study. Left lobe: 1.4 cm x 1.3 cm x 4.0 cm (w x ap x l). Volume: 3.8 cm3. Normal size thyroid. Very heterogeneous appearance of the thyroid. No discrete nodules. No increased vascularity. Benign cervical chain lymph nodes. Isthmus: 0.4 cm. US/US thyroid [id number] IMPRESSION: 1. Solid mass with slight increase in size in the mid to lower RIGHT thyroid. Only minimal change since the prior study from 2019. Fine-needle ultrasound-wilfrid ded aspiration versus continued yearly ultrasound evaluation. 2. Heterogeneous LEFT thyroid. No mass.
== END 2021-12-30 12:37 | disposition home or self-care (01) ==
LOC: RAD 12:37
PROVIDERS: PCP Family Medicine; Visit Provider Internal Medicine
DX: E04.2 Nontoxic multinodular goiter (principal); E03.9 Hypothyroidism, unspecified
CPT/HCPCS: 76536